=== PATIENT | male | born 1930 | race Caucasian/White ===

== ENCOUNTER 2017-02-27 18:43 | Emergency (ER) | payer OTHER ==
[2017-02-27 18:48] VITALS: BP 168/67; PULSE 75; TEMP 97.8; BMI 28.1
--- NOTE | 2017-02-27 20:24 | PDOC ---
History of Present Illness - General History Source: Patient Exam Limitations: No Limitations - History of Present Illness Initial Comments: 02/27/17 20:39 The patient is an 82 year old male with a significant past medical history of hypertension, GERD, and anemia who presents to the emergency department sent in by Dr. Covarrubias for left leg swelling. As per Dr. Covarrubias, the lower extremity is more edematous than last week. Patient reports increased swelling since last week and notes that the redness and pain have developed over the last couple of days. Patient states that he fell about 3 weeks ago after slipping on the wooden floor at home. He denies any abrasions, bruising or scrapes to the area s /p fall. Patient had left leg US last week that was negative. He also states that his left outer thigh is sore. He denies shortness of breath, chest pain, or palpitations. He denies fever or chills. No prior hx of cellulitis. Allergies: NKA Daily Meds: vitamins PCP: Dr. Covarrubias <May Kaye - Last Filed: 02/27/17 20:50> <Nelli Hamilton - Last Filed: 02/28/17 04:32> - General Chief Complaint: Pain, Acute Stated Complaint: left leg swelling/pain Time Seen by Provider: 02/27/17 19:08 Past History <May Kaye - Last Filed: 02/27/17 20:50> - Past Medical History Anemia: Yes Asthma: No GI Disorders: Yes (GERD) HTN: Yes - Surgical History Cholecystectomy: Yes - Psycho/Social/Smoking Cessation Hx Anxiety: No Suicidal Ideation: No Smoking Status: No Smoking History: Former smoker Have you smoked in the past 12 months: No Number of Cigarettes Smoked Daily: 0 If you are a former smoker, when did you quit?: 1983 Information on smoking cessation initiated: No 'Breaking Loose' booklet given: 03/08/12 Hx Alcohol Use: Yes Drug/Substance Use Hx: No Substance Use Type: Alcohol Hx Substance Use Treatment: No <Nelli Hamilton - Last Filed: 02/28/17 04:32> - Past Medical History Allergies/Adverse Reactions: Allergies Allergy/AdvReac Type Severity Reaction Status Date / Time No Known Allergies Allergy Verified 02/27/17 18:44 Home Medications: Ambulatory Orders Cyanocobalamin [Vitamin B12 -] 1,000 mcg PO DAILY 04/13/13 Ferrous Sulfate [Feosol] 325 mg PO DAILY 04/13/13 Cholecalciferol (Vitamin D3) [Vitamin D3] 2,000 unit PO AM tablet 10/19/14 Clindamycin HCl [Cleocin HCl] 300 mg PO QID #28 capsule 02/27/17 Review of Systems - Review of Systems Able to Perform ROS?: Yes Comments:: 02/27/17 20:40 CONSTITUTIONAL: Absent: fever, no chills, no fatigue EYES: Absent: visual changes ENT: Absent: ear pain, no sore throat CARDIOVASCULAR: Absent: chest pain, no palpitations RESPIRATORY: Absent: cough, no SOB GI: Absent: abdominal pain, no nausea, no vomiting, no constipation, no diarrhea GENITOURINARY: Absent: dysuria, no frequency, no hematuria MUSCULOSKELETAL: Present: left lower extremity swelling, redness and pain Absent: back pain, no arthralgia, no myalgia SKIN: Absent: rash NEURO: Absent: headache <May Kaye - Last Filed: 02/27/17 20:50> *Physical Exam - Vital Signs Last Vital Signs Temp Pulse Resp BP Pulse Ox 97.8 F 75 18 168/67 100 02/27/17 18:46 02/27/17 18:46 02/27/17 18:46 02/27/17 18:46 02/27/17 18:46 - Physical Exam Comments: 02/27/17 20:40 GENERAL: The patient is awake, alert, and fully oriented, in no acute distress. HEAD: Normal with no signs of trauma. EYES: Pupils equal, round and reactive to light, extraocular movements intact, sclera anicteric, conjunctiva clear with no pallor. ENT: Ears normal, nares patent, oropharynx clear without exudates. Moist mucous membranes. NECK: Normal range of motion, supple without lymphadenopathy, JVD, or masses. LUNGS: Breath sounds equal, clear to auscultation bilaterally. No wheeze/ crackles. HEART: Regular rate and rhythm, normal S1 and S2 without murmur or rub. ABDOMEN: Soft/nontender/nondistended. BS wnl. No guarding or rebound. No palpable masses. No hepatosplenomegaly. EXTREMITIES: (+)LLE has sharply demarcated erythema to the proximal 3rd of the lower leg with 2+ edema and tenderness, faint erythema and tenderness extends to distal thigh with no clear laceration or abrasion, no fluctuance, no streaking, no purulence. Distal extremity is cool and dry with fair capillary refill (+)RLE 1+pitting edema at the ankle without erythema or tenderness or skin lesions. Normal range of motion. No clubbing or cyanosis. No cords. NEUROLOGICAL: Cranial nerves II through XII grossly intact. Normal speech, normal gait. PSYCH: Normal mood, normal affect. <May Kaye - Last Filed: 02/27/17 20:50> - Vital Signs Last Vital Signs Temp Pulse Resp BP Pulse Ox 97.8 F 75 18 168/67 100 02/27/17 18:46 02/27/17 18:46 02/27/17 18:46 02/27/17 18:46 02/27/17 18:46 <Nelli Hamilton - Last Filed: 02/28/17 04:32> ED Treatment Course - LABORATORY CBC & Chemistry Diagram: 02/27/17 21:05 02/27/17 21:05 <Nelli Hamilton - Last Filed: 02/28/17 04:32> Medical Decision Making - Medical Decision Making Documentation has been prepared under my direction and personally reviewed by me in its entirety. I attest that this documented accurately reflects all work, treatment, procedures and medical decision making performed by me. As noted above, this 86-year-old man presents with a few weeks of left lower leg edema after a fall; he had been seen by his PMD, after this and ultrasound was negative for DVT. Over the last few days, he has had increased swelling and development of pain and erythema in the area. No known history of skin breakage. Patient has no previous history of cellulitis or abscess. He has not had any recent fever/chills. Patient was seen by Dr. Covarrubias in the office and sent to the ER to rule out DVT. Exam as noted above. Doppler duplex ultrasound of the left lower leg is negative for DVT. Vancomycin 1 g IV ordered for cellulitis left lower leg Because of the progressive erythema/pain/tenderness of the left lower leg, suggestive of cellulitis, CBC, chemistry profile, blood cultures, lactic acid sent. White blood cell count is not elevated at 5200. Differential notable for 8.4% eosinophils. Chemistry shows no significant abnormalities except for random glucose of 152/alkaline phosphatase of 97 Lactic acid is normal at 1.1 Case discussed with of [facility]. Patient does not meet inpatient admission qualifications for cellulitis and will be discharged on clindamycin 300 mg 4 times a day for one week. Patient will follow-up with Dr. Covarrubias 03/03 for check of his cellulitis and follow-up of his laboratory abnormalities. The patient understands that he should return to the emergency room if he has worsening pain/swelling/redness or experiences fever/ chills. <Nelli Hamilton - Last Filed: 02/28/17 04:32> *DC/Admit/Observation/Transfer - Attestations Scribe Attestion: 02/27/17 20:41 Documentation prepared by ROSITA Blancas, acting as medical staff physician for Nelli Hamilton MD. <May Kaye - Last Filed: 02/27/17 20:50> <Nelli Hamilton - Last Filed: 02/28/17 04:32> Diagnosis at time of Disposition: Cellulitis of left lower leg - Discharge Dispostion Disposition: HOME Condition at time of disposition: Stable - Prescriptions Prescriptions: Clindamycin HCl [Cleocin HCl] 300 mg PO QID #28 capsule - Referrals Referrals: Dominick Covarrubias MD [Primary Care Provider] - - Patient Instructions Printed Discharge Instructions: Cellulitis Additional Instructions: Clindamycin 300 mg every 6 hours for 1 week Keep left leg elevated as much as possible Return to ER if you have worsening pain/swelling/redness or develops fever/ chills See Dr. Covarrubias on March 03
[2017-02-27 21:17] LABS: BASOPHIL 4.3 % (0-2.0); EOSINOPHIL 8.4 % (0-4.5); MCH 33.5 pg (25.7-33.7); MCHC 34.8 g/dl (32.0-35.9); MEAN CELL VOLUME 96.3 fl (80-96); MEAN PLT VOLUME 8.9 fl (7.5-11.1); PLATELET COUNT 207 K/MM3 (134-434); RDW 12.3 % (11.9-15.9); WHITE BLOOD COUNT 5.6 K/mm3 (4.0-10.8)
[2017-02-27 21:24] LABS: INR 1.03 (0.82-1.09); PROTHROMBIN TIME (PATIENT) 11.5 SEC (10.2-13.0)
[2017-02-27 21:29] LABS: ALBUMIN 3.3 g/dl (3.5-5.0); ALK PHOS 97 U/L (32-92); ANION GAP 8 (8-16); BILIRUBIN,TOTAL 0.5 mg/dl (0.2-1.0); CALCIUM 8.4 mg/dl (8.4-10.2); CO2 24 mmol/L (22-28); CREATININE 1.2 mg/dl (0.6-1.3); GLUCOSE,RANDOM 152 mg/dl (74-106); SGOT/AST 21 U/L (10-42); SGPT/ALT 12 U/L (10-40); TOT PROT 6.4 g/dl (6.4-8.3)
[2017-02-27] MEDS ORDERED: VANCOMYCIN 1,000 MG in DEXTROSE 5%-WATER - 250 ML IVPB ONE (22:00)
[2017-02-27] MEDS ORDERED: VANCOMYCIN 1,000 MG VIAL (RESTRICTED TO ID ONLY) ONE (22:04)
[2017-02-27 22:10] LABS: TROPONIN I (DFP) 0.03 ng/ml (0.03-0.50)
[2017-02-27 22:13] LABS: CK MB 4.8 ng/ml (0.3-4.0)
== END 2017-02-28 00:15 | disposition home or self-care (01) ==
LOC: FER 18:43
DX: L03.116 Cellulitis of left lower limb (principal); I10 Essential (primary) hypertension; K21.9 Gastro-esophageal reflux disease without esophagitis; Z87.891 Personal history of nicotine dependence; D64.9 Anemia, unspecified
CPT/HCPCS: 36415; 80053; 82550; 82553; 83605; 84484; 85025; 85610; 87040; 93971-TC; 96365; 99282-25

== ENCOUNTER 2017-04-01 08:42 | Day surgery (SDC) | payer OTHER ==
[2017-03-24 15:36] VITALS: BMI 27.6
[2017-04-01] MEDS ORDERED: MIDAZOLAM HCL 2 MG/2 ML SINGLE DOSE VIAL ONE (09:30)
[2017-04-01] MEDS: TROPICAMIDE 1% OPHTH SOLN 15 ML BOTTLE ONE ×3 (09:40→09:50)
[2017-04-01] MEDS: CIPROFLOXACIN 0.3% EYE DROPS 5 ML BOTTLE ONE ×3 (09:40→09:50)
[2017-04-01] MEDS: CYCLOPENTOLATE 2% OPHTH SOLN 2 ML BOTTLE ONE ×3 (09:40→09:50)
[2017-04-01] MEDS: PHENYLEPHRINE 2.5% OPHTH SOLN 15 ML BOTTLE ONE ×3 (09:40→09:50)
[2017-04-01 11:16] VITALS: TEMP 97.5
[2017-04-01 12:39] VITALS: BP 141/55; PULSE 64
--- NOTE | 2017-04-03 15:05 | OP ---
DATE OF OPERATION: 04/01/2017 OPERATIVE PROCEDURE: Lens Phacoemulsification with Posterior Chamber Intraocular Lens Placement, Right Eye PREOPERATIVE DIAGNOSIS: Visually Significant Cataract of Right Eye POSTOPERATIVE DIAGNOSIS: Visually Significant Cataract of Right Eye SURGEON: Tra Wilson M.D. ANESTHESIA: MAC ANESTHESIOLOGIST: PROCEDURE: The patient was brought to the operating room and placed under monitored anesthesia care by Anesthesia. A drop of Tetracaine was then placed over the right eye. The patient was then prepped and draped in the usual sterile manner. A speculum was then placed over the right eye. The eye was then well irrigated with copious amounts of BSS (balanced salt solution). The operating microscope was then moved into position. A paracentesis was performed using a 15 degree blade. At this point 0.5 mL of 1% preservative free-lidocaine was injected into the anterior chamber. Amvisc plus was then injected into the anterior chamber. A clear corneal incision was then formed using a 2.2 mm keratome. A capsulorrhexis was then performed in a continuous circular fashion beginning with a cystotome completed with an Utratas forceps. Hydrodissection was then performed using BSS on a cannula. The phaco probe was then introduced through the corneal wound and the cataract was removed using the phaco chop technique. Approximately 3 seconds of absolute phaco time was used. The remaining cortex was then removed using irrigation and aspiration with an I/A probe. The capsule was then filled with regular Amvisc and the capsule was noted to be intact. A previously selected foldable posterior chamber intraocular lens was then injected into the capsule through the corneal wound using a lens injector. It was then dialed into position using a Sinskey hook. The Amvisc was then removed using irrigation and aspiration. Miostat was then injected through the paracentesis to constrict the pupil. The paracentesis and corneal wound were then hydrated and noted to be water tight. A drop of Maxitrol was then placed over the eye. The speculum was removed and clear shield was taped over the eye. The patient tolerated the procedure well and there were no surgical complications. The patient was asked to follow up in my office the next day. TRA WILSON M.D. [id number]
== END 2017-04-01 11:50 | disposition home or self-care (01) ==
LOC: FASU 08:42
PROVIDERS: ATTEND Ophthalmology
PROC: 08RJ3JZ Replacement of Right Lens with Synthetic Substitute, Percutaneous Approach (ICD-10-PCS; principal; 2017-04-01 10:43)
DX: H26.8 Other specified cataract (principal)

== ENCOUNTER 2017-04-27 07:33 | Day surgery (SDC) | payer OTHER ==
[2017-04-27 07:56] VITALS: BMI 27.6
[2017-04-27] MEDS: CYCLOPENTOLATE 2% OPHTH SOLN 2 ML BOTTLE ONE ×3 (08:10→08:20)
[2017-04-27] MEDS: CIPROFLOXACIN 0.3% EYE DROPS 5 ML BOTTLE ONE ×3 (08:10→08:20)
[2017-04-27] MEDS: TROPICAMIDE 1% OPHTH SOLN 15 ML BOTTLE ONE ×3 (08:10→08:20)
[2017-04-27] MEDS: PHENYLEPHRINE 2.5% OPHTH SOLN 15 ML BOTTLE ONE ×3 (08:10→08:20)
[2017-04-27] MEDS ORDERED: MIDAZOLAM HCL 2 MG/2 ML SINGLE DOSE VIAL ONE (09:31)
[2017-04-27] MEDS ORDERED: LACTATED RINGERS SOLUTION 1,000 ML IV SCH (10:15)
[2017-04-27 10:53] VITALS: TEMP 97.6
[2017-04-27 11:27] VITALS: BP 141/52; PULSE 50
--- NOTE | 2017-04-27 14:55 | EKG ---
Test Reason : Blood Pressure : / mmHG Vent. Rate : 055 BPM Atrial Rate : 055 BPM P-R Int : 000 ms QRS Dur : 168 ms QT Int : 530 ms P-R-T Axes : 058 -80 084 degrees QTc Int : 507 ms Ventricular-paced rhythm WITH PVCs ABNORMAL ECG WHEN COMPARED WITH ECG OF 27-FEB-2015 13:46, ELECTRONIC VENTRICULAR PACEMAKER is now present VENT. RATE HAS INCREASED BY 21 BPM Confirmed by AMBER GUPTA MD ([id number]) on 04/27/2017 2:55:31 PM Referred By: Tra Beck Confirmed By:AMBER GUPTA MD
--- NOTE | 2017-04-28 11:03 | OP ---
DATE OF OPERATION: 04/27/2017 OPERATIVE PROCEDURE: Lens phacoemulsification with posterior chamber intraocular lens placement left eye PREOPERATIVE DIAGNOSIS: Visually significant cataract of left eye POSTOPERATIVE DIAGNOSIS: Visually significant cataract of left eye SURGEON: Tra Wilson M.D. ANESTHESIA: MAC PROCEDURE: The patient was brought to the operating room and placed under monitored anesthesia care by Anesthesia. A drop of Tetracaine was then placed over the left eye. The patient was then prepped and draped in the usual sterile manner. A speculum was then placed over the left eye. The eye was then well irrigated with copious amounts of BSS (balanced salt solution). The operating microscope was then moved into position. A paracentesis was performed using a 15 degree blade. At this point 0.5 mL of 1% preservative-free lidocaine was injected into the anterior chamber. Amvisc plus was then injected into the anterior chamber. A clear corneal incision was then formed using a 2.2 mm keratome. A capsulorrhexis was then performed in a continuous circular fashion beginning with a cystotome, completed with an Utratas forceps. Hydrodissection was then performed using BSS on a cannula. The phaco probe was then introduced through the corneal wound and the cataract was removed using the phaco chop technique. Approximately 3 seconds of absolute phaco time was used. The remaining cortex was then removed using irrigation and aspiration with an I/A probe. The capsule was then filled with regular Amvisc and the capsule was noted to be intact. A previously selected foldable posterior chamber intraocular lens was then injected into the capsule through the corneal wound using a lens injector. It was then dialed into position using a Sinskey hook. The Amvisc was then removed using irrigation and aspiration. Miostat was then injected through the paracentesis to constrict the pupil. The paracentesis and corneal wound were then hydrated and noted to be water tight. A drop of Maxitrol was then placed over the eye. The speculum was removed and clear shield was taped over the eye. The patient tolerated the procedure well and there were no surgical complications. The patient was asked to follow up in my office the next day. TRA WILSON M.D. [id number]
== END 2017-04-27 11:20 | disposition home or self-care (01) ==
LOC: FASU 07:33
PROVIDERS: ATTEND Ophthalmology
PROC: 08RK3JZ Replacement of Left Lens with Synthetic Substitute, Percutaneous Approach (ICD-10-PCS; principal; 2017-04-27 09:35)
DX: H26.8 Other specified cataract (principal)
CPT/HCPCS: 93005; 94760